=== PATIENT | male | born 1965 | race Caucasian/White ===

== ENCOUNTER 2022-10-25 02:28 | Day surgery (SDC) | payer BC, SELFPAY ==
[2022-10-10 14:41] VITALS: BMI 33.9
--- NOTE | 2022-10-24 19:42 | PM.HPGS ---
History of Present Illness History of Present Illness Consent: Risks, benefits, and alternatives have been discussed and questions answered. Patient agrees to proceed with procedure. Chief complaint: abdominal distension, hx colon polyps, diarrhea Narrative: Raymond Garg is a 57 year old male who is referred for colon cancer screening. 4 years ago he had 3 polyps removed. 3 years prior to that he had a 3 cm diameter rectal polyp removed Review of Systems Review of Systems: All systems reviewed & are unremarkable except as noted in HPI and below PMFSH Past Medical History Medical History Deviated nasal septum Flatulence/gas pain/belching Nasal septal deviation Obese TMJ (dislocation of temporomandibular joint) Surgical History Surgical History Hx of right knee surgery Status post right knee replacement Family History Family History Father Hypertension Mother Patient's mother is in good health Other Family history of gout Social History Social History Smoking status: Never smoker Alcohol intake: current Drinks per week: 10 Substance use type: does not use Living arrangements: with family Spiritual care concerns: No Meds Home Medications and Allergies Home Medications Medication Instructions Recorded Confirmed Type colchicine 0.6 mg tablet 0.6 mg PO DAILY #90 tabs 07/05/20 10/25/22 Rx allopurinol 100 mg tablet 100 mg PO BID #180 tabs 06/18/22 10/25/22 Rx cholestyramine (with sugar) 4 gram 4 g PO BID #378 grams 10/07/22 10/25/22 Rx oral powder (Questran) omeprazole 40 mg capsule,delayed 40 mg PO DAILY 1 month #30 caps 10/07/22 10/25/22 Rx release finasteride 1 mg tablet 1 mg PO DAILY 10/10/22 10/25/22 History fluoxetine 10 mg capsule 10 mg PO DAILY 10/10/22 10/25/22 History lisinopril 10 1 tablet PO DAILY 10/10/22 10/25/22 History mg-hydrochlorothiazide 12.5 mg tablet sildenafil (pulm.hypertension) 20 20 mg PO DAILY 10/10/22 10/25/22 History mg tablet Allergies Allergy/AdvReac Type Severity Reaction Status Date / Time No Known Allergies Allergy Verified 10/25/22 11:10 Exam Resp: Auscultation: clear to auscultation bilaterally Cardio: Rate: regular rate Rhythm: regular rhythm GI: GI Palp: Yes Soft to palpation and No Tenderness to palpation present (GI) Assessment and Plan Assessment and plan (1) Colon cancer screening: Code(s): Z12.11 - Encounter for screening for malignant neoplasm of colon Status: Acute Assessment and Plan: Colonoscopy with possible biopsy or polypectomy or cautery or injection of substances.
[2022-10-25 11:00] VITALS: BP 130/89; PULSE 85; RESP 18; TEMP 35.7; O2SAT 100; BMI 33.9
[2022-10-25] MEDS: LACTATED RINGERS 1,000 ML 150 ML IV CONT (11:37)
[2022-10-25] MEDS: AMPICILLIN 2 GM/NS 100 ML 2 GM/100 ML BAG IVPB (11:38)
--- NOTE | 2022-10-25 11:43 | WPDANESEPPF ---
Anes - Initial Pre Proc Eval Procedure: Operation Date: 10/25/22 12:30 Proposed Procedures p Esophagogastroduodenoscopy & Colonoscopy - Wayne Chamberlain MD Date/Time: 10/25/22 11:43 Surgeon: Wayne Chamberlain MD Pre Op Diagnosis: abdominal distension, hx colon polyps, diarrhea Patient Data Age: 57 Gender: M Height: 2.01 m Weight: 136.5 kg Last Vital Signs Temp 35.7 C L 10/25/22 11:00 Pulse 85 10/25/22 11:00 Resp 18 10/25/22 11:00 BP 130/89 10/25/22 11:00 Pulse Ox 100 10/25/22 11:00 O2 Del Method Room Air 10/25/22 11:00 Allergies Allergy/AdvReac Type Severity Reaction Status Date / Time No Known Allergies Allergy Verified 10/25/22 11:10 Home Medications Medication Instructions Recorded Confirmed Type colchicine 0.6 mg tablet 0.6 mg PO DAILY #90 tabs 07/05/20 10/25/22 Rx allopurinol 100 mg tablet 100 mg PO BID #180 tabs 06/18/22 10/25/22 Rx cholestyramine (with sugar) 4 gram 4 g PO BID #378 grams 10/07/22 10/25/22 Rx oral powder (Questran) omeprazole 40 mg capsule,delayed 40 mg PO DAILY 1 month #30 caps 10/07/22 10/25/22 Rx release finasteride 1 mg tablet 1 mg PO DAILY 10/10/22 10/25/22 History fluoxetine 10 mg capsule 10 mg PO DAILY 10/10/22 10/25/22 History lisinopril 10 1 tablet PO DAILY 10/10/22 10/25/22 History mg-hydrochlorothiazide 12.5 mg tablet sildenafil (pulm.hypertension) 20 20 mg PO DAILY 10/10/22 10/25/22 History mg tablet Patient hx anesthesia problems: none Family hx anesthesia problems: none Results Review: All pre-operative results and documents have been reviewed as part of the pre-operative evaluation. [facility] Past Medical History Medical History (Updated 10/25/22 @ 11:44 by Feliberto Pathak MD) Deviated nasal septum Flatulence/gas pain/belching Nasal septal deviation Obese ILIA on CPAP TMJ (dislocation of temporomandibular joint) Surgical History Surgical History Hx of right knee surgery Status post right knee replacement Family History Family History Father Hypertension Mother Patient's mother is in good health Other Family history of gout Social History Social History Smoking status: Never smoker Alcohol intake: current Drinks per week: 10 Substance use type: does not use Living arrangements: with family Spiritual care concerns: No Anes - Eval Final PreProcedure Day of Procedure 10/25/22 11:43 Patient weight: obese Heart: regular rate and rhythm Lungs: clear to auscultation Airway: Mallampati scale class III Neurological: alert and oriented Last oral intake: >/= 8 hours ASA classification: III Emergent: no Anesthetic plan: proceed Anesthesia type and monitoring: general GIVS and standard monitoring Results Review: All pre-operative results and documents have been reviewed as part of the pre-operative evaluation. Informed Consent: The patient's anesthetic plan and its attendant risks and benefits were discussed with the patient/family/POA. Questions were solicited and answers provided to the satisfaction of the patient/family/POA.
[2022-10-25] MEDS: BENZOCAINE (*SP) 60 ML SPRAY CAN (HURRICAINE) 1 SPRAY MUCOUS MEM (12:02)
--- NOTE | 2022-10-25 12:21 | SUR.OPER ---
egd ended 1213, colonoscopy started 1221
[2022-10-25 12:33] VITALS: BP 137/111; PULSE 83; RESP 20; O2SAT 100
[2022-10-25 12:43] VITALS: BP 114/70; PULSE 82; RESP 16; O2SAT 100
[2022-10-25 12:53] VITALS: BP 121/77; PULSE 75; RESP 17; O2SAT 100
== END 2022-10-25 13:07 | disposition home or self-care (01) ==
PROVIDERS: PCP Family Medicine; Visit Provider Internal Medicine Gastroenterology
PROC: 0DJ08ZZ Inspection of Upper Intestinal Tract, Via Natural or Artificial Opening Endoscopic (ICD-10-PCS; CPT 43235; principal; 2022-10-25 12:30)
DX: Z12.11 Encounter for screening for malignant neoplasm of colon (principal); R19.7 Diarrhea, unspecified; K57.30 Diverticulosis of large intestine without perforation or abscess without bleeding; K64.8 Other hemorrhoids; Z86.010 Personal history of colon polyps; K21.9 Gastro-esophageal reflux disease without esophagitis; K22.2 Esophageal obstruction; K44.9 Diaphragmatic hernia without obstruction or gangrene; K29.80 Duodenitis without bleeding; E66.9 Obesity, unspecified; Z68.33 Body mass index [BMI] 33.0-33.9, adult
CPT/HCPCS: 45380; 43239; 43249; 87081; 88305; C1726; J0290; J2704; J7120